=== PATIENT | female | born 1965 | race African-American/Black ===

== ENCOUNTER 2020-06-23 08:49 | Outpatient (CLI) | payer MEDICARE, SELFPAY ==
--- NOTE | ~2020-06-23 | XR_ITS ---
EXAMINATION: XR foot LT 2V DATE: 06/23/2020 11:46 INDICATION: Multiple joint pain. TECHNIQUE: 1. Dorsoplantar and lateral views of the left foot were obtained. COMPARISON: None. FINDINGS: Mild hallux valgus and developing bunion formation with mild hypertrophic change at the medial head o f the first metatarsal. No fracture. Mild osteoarthritis at the first metatarsophalangeal and several interphalangeal joints. Small Achilles and plantar calcaneal spurs with additional small enthesophyt e along the medial malleolus.. Small heterotopic ossicle versus phlebolith alongside the lateral mall eolus. IMPRESSION: 1. Mild degenerative skeletal changes in the left foot as detailed above. Reviewed, dictated and finalized at location B.
--- NOTE | ~2020-06-23 | XR_ITS ---
EXAMINATION: XR knee LT 2V DATE: 06/23/2020 11:46 INDICATION: Multiple joint pain. TECHNIQUE: 2 views of left knee were obtained. COMPARISON: Left knee radiographs 06/08/2016 FINDINGS: Bone alignment is normal. No fracture. There is moderate osteoarthritis of medial compartme nt and mild osteoarthritis of lateral and patellofemoral compartments. No knee joint effusion. IMPRESSION: 1. Moderate left knee osteoarthritis. Reviewed, dictated and finalized at location A.
--- NOTE | ~2020-06-23 | XR_ITS ---
EXAMINATION: XR shoulder RT min 2V DATE: 06/23/2020 11:46 INDICATION: Multiple joint pain. TECHNIQUE: 2 views of right shoulder were obtained. COMPARISON: Right shoulder radiographs 06/16/2016 FINDINGS: Bone alignment is normal. No fracture. There is mild osteoarthritis of glenohumeral joint a nd acromioclavicular joint. IMPRESSION: 1. Polyarticular osteoarthritis. Reviewed, dictated and finalized at location A.
--- NOTE | ~2020-06-23 | XR_ITS ---
XR hip BI wo pelvis DATE: 06/23/2020 11:54 INDICATION: Pelvis and hip pain TECHNIQUE: AP and lateral views of each hip COMPARISON: 02/17/2017 pelvis with bilateral FINDINGS: No fracture or dislocation, avascular necrosis or bone destruction of either hip. Hip joint spaces are symmetric and relatively preserved. The pubic symphysis and sacral iliac joints appear un remarkable. IMPRESSION: No significant abnormality Reviewed, dictated and finalized at location A. IMPRESSION: No significant abnormality
--- NOTE | ~2020-06-23 | XR_ITS ---
EXAMINATION: XR wrist RT 2V, XR hand RT 2V DATE: 06/23/2020 11:46 INDICATION: Multiple joint pain. TECHNIQUE: 1. Posteroanterior and lateral views of the right wrist were obtained. 2. Dorsal palmar and lateral views of the right hand were obtained. COMPARISON: None. FINDINGS: Alignment of the right hand and wrist are normal. No fracture. Mild osteoarthritis at the first carpa l metacarpal, first interphalangeal and second-fifth distal interphalangeal joints and minimal osteoa rthritis at the distal radioulnar and multiple additional metacarpophalangeal and interphalangeal priscilla nts. IMPRESSION: 1. Mild polyarticular osteoarthritis. Reviewed, dictated and finalized at location B.
--- NOTE | ~2020-06-23 | XR_ITS ---
CORRECTED REPORT Order #[id number] and XR foot RT 2V removed from report. 06/23/2020 sef EXAMINATION: XR hand RT 2V DATE: 06/23/2020 11:46 INDICATION: Multiple joint pain. TECHNIQUE: 1. Posteroanterior and lateral views of the right wrist were obtained. 2. Dorsal palmar and lateral views of the right hand were obtained. COMPARISON: None. FINDINGS: Alignment of the right hand and wrist are normal. No fracture. Mild osteoarthritis at the first carpal metacarpal, first interphalangeal and second- fifth distal interphalangeal joints and minimal osteoarthritis at the distal radioulnar and multiple additional metacarpophalangeal and interphalangeal joints. IMPRESSION: 1. Mild polyarticular osteoarthritis. Reviewed, dictated and finalized at location B. MTDD
--- NOTE | ~2020-06-23 | XR_ITS ---
XR foot RT 2V DATE: 06/26/2020 08:14 INDICATION: Multiple foot joint pain TECHNIQUE: AP and lateral views COMPARISON: None FINDINGS: There is plantar and posterior calcaneal enthesopathy. No fracture or dislocation, periosteal reaction or bone destruction. Spaces are preserved. No erosive change. IMPRESSION: Plantar and posterior calcaneal enthesopathy Reviewed, dictated and finalized at location A.
--- NOTE | ~2020-06-23 | XR_ITS ---
EXAMINATION: XR ankle RT 2V DATE: 06/23/2020 11:46 INDICATION: Multiple joint pain. TECHNIQUE: 2 views of right ankle were obtained. COMPARISON: None. FINDINGS: Bone alignment is normal. No fracture. There is mild osteoarthritis of the ankle joint. The re are enthesophytes at the posterior and plantar aspects of calcaneal tuberosity. IMPRESSION: 1. Mild ankle joint osteoarthritis. Reviewed, dictated and finalized at location A.
--- NOTE | ~2020-06-23 | XR_ITS ---
EXAMINATION: XR elbow LT 2V DATE: 06/23/2020 11:46 INDICATION: Multiple joint pain. TECHNIQUE: 2 views of left elbow were obtained. COMPARISON: None. FINDINGS: Bone alignment is normal. No fracture. Joint spaces are well maintained. There is no elbow joint effusion. IMPRESSION: 1. Normal left elbow. Reviewed, dictated and finalized at location A. IMPRESSION: 1. Normal left elbow.
--- NOTE | ~2020-06-23 | XR_ITS ---
EXAMINATION: XR shoulder LT min 2V DATE: 06/23/2020 11:46 INDICATION: Multiple joint pain. TECHNIQUE: 2 views of left shoulder were obtained. COMPARISON: Left shoulder radiographs 06/08/2016 FINDINGS: Bone alignment is normal. No fracture. There is mild osteoarthritis of glenohumeral joint a nd moderate osteoarthritis of acromioclavicular joint. IMPRESSION: 1. Polyarticular osteoarthritis. Reviewed, dictated and finalized at location A.
--- NOTE | ~2020-06-23 | XR_ITS ---
EXAMINATION: XR ankle LT 2V DATE: 06/23/2020 11:46 INDICATION: Multiple joint pain. TECHNIQUE: 2 views of left ankle were obtained. COMPARISON: None. FINDINGS: Bone alignment is normal. No fracture. Joint spaces are normal. There are enthesophytes at the posterior and plantar aspects of calcaneal tuberosity. IMPRESSION: 1. No arthritis. Reviewed, dictated and finalized at location A. IMPRESSION: 1. No arthritis.
--- NOTE | ~2020-06-23 | XR_ITS ---
EXAMINATION: XR elbow RT 2V DATE: 06/23/2020 11:46 INDICATION: Multiple joint pain. TECHNIQUE: 2 views of right elbow were obtained. COMPARISON: None. FINDINGS: Bone alignment is normal. No fracture. Joint spaces are well maintained. There is no elbow joint effusion. IMPRESSION: 1. Normal right elbow. Reviewed, dictated and finalized at location A. IMPRESSION: 1. Normal right elbow.
--- NOTE | ~2020-06-23 | XR_ITS ---
EXAMINATION: XR knee RT 2V DATE: 06/23/2020 11:46 INDICATION: Multiple joint pain. TECHNIQUE: 2 views of right knee were obtained. COMPARISON: Right knee radiographs 06/08/2016 FINDINGS: Bone alignment is normal. No fracture. There is mild tricompartmental osteoarthritis. No kn ee joint effusion. IMPRESSION: 1. Mild right knee osteoarthritis. Reviewed, dictated and finalized at location A.
--- NOTE | ~2020-06-23 | XR_ITS ---
EXAMINATION: XR hand LT 2V DATE: 06/23/2020 11:46 INDICATION: Multiple joint pain. TECHNIQUE: 3 views of left hand were obtained. COMPARISON: None. FINDINGS: Bone alignment is normal. No fracture. There is mild osteoarthritis of first carpometacarpa l joint, first-fourth metacarpophalangeal joints, first interphalangeal joint, and second-fifth dista l interphalangeal joints. IMPRESSION: 1. Mild polyarticular osteoarthritis. Reviewed, dictated and finalized at location A.
--- NOTE | ~2020-06-23 | XR_ITS ---
EXAMINATION: XR wrist LT 2V DATE: 06/23/2020 11:46 INDICATION: Multiple joint pain. TECHNIQUE: 2 views of left wrist were obtained. COMPARISON: None. FINDINGS: Bone alignment is normal. No fracture. There is mild osteoarthritis of first carpometacarpa l joint. IMPRESSION: 1. Mild osteoarthritis of first carpometacarpal joint. Reviewed, dictated and finalized at location A.
[2020-06-23 11:00] LABS: Hematocrit 36.7 % (37.0-47.0); Hemoglobin 11.8 g/dL (12.0-15.0); Mean Corpuscular HGB Conc 32.2 g/dl (32-36); Mean Corpuscular Hemoglobin 28.6 pg (26-34); Mean Corpuscular Volume 88.9 fl (80-100); Mean Platelet Volume 11.7 fl (7.4-10.4); Platelet Count Result 227 k/mm3 (150-375); Red Blood Count 4.13 M/mm3 (4.2-5.4); Red Cell Distribution Width 14.1 % (11.5-14.5); White Blood Count 9.2 K/mm3 (4.5-10.0)
[2020-06-23 11:12] LABS: Hemoglobin A1C 5.4 % (<5.7)
[2020-06-23 11:14] LABS: Rheumatoid Factor < 8.6 IU/ML (<12)
[2020-06-23 11:15] LABS: Alanine Aminotransferase 18 U/L (4-35); Albumin Level 4.1 g/dL (3.5-5.1); Alkaline Phosphatase 74 U/L (38-126); Anion Gap 8 mmol/L (8-16); Aspartate Amino Transferase 17 U/L (14-36); Bilirubin,Total 0.5 mg/dL (0.2-1.3); Blood Urea Nitrogen 16 mg/dL (7-17); Calcium 10.1 mg/dL (8.4-10.2); Carbon Dioxide 29 mmol/L (22-30); Chloride 101 mmol/L (98-107); Creatine Kinase 71 U/L (30-135); Estimated Glomerular Filt Rate > 60; Glucose 95 mg/dL (65-105); Sodium 138 mmol/L (137-145); Uric Acid 6.7 mg/dL (2.5-7.5)
[2020-06-23 11:54] LABS: Free T4 Free Thyroxine 0.94 ng/mL (0.78-2.19); Vitamin D 25 Hydroxy 33.1 ng/mL
[2020-06-23 12:04] LABS: Erythrocyte Sedimentation Rate 99 mm/hr (0-20)
[2020-06-23 12:18] LABS: Folic Acid 5.9 ng/mL (2.76->20)
[2020-06-26 09:38] LABS: Anti Cyclic Citrullinated Pept <16 Units (<20)
[2020-06-28 22:34] LABS: Albumin 3.5 g/dL (3.8-4.8); Alpha 1 Globulin 0.3 g/dL (0.2-0.3); Alpha 2 Globulin 0.9 g/dL (0.5-0.9); Beta 1 Globulin 0.5 g/dL (0.4-0.6); Gamma Globulin 1.5 g/dL (0.8-1.7); Protein, Total 7.3 g/dL (6.1-8.1)
[2020-06-30 20:39] LABS: Creatinine, Random Urine 88 mg/dL (20-275); Total Protein/Creatinine Ratio 68 mg/g creat (21-161)
[2020-07-07 12:27] LABS: Reference Lab Test Name 14-3-3 eta Protein
== END 2020-06-23 08:50 | disposition home or self-care (01) ==
PROVIDERS: Visit Provider Internal Medicine Rheumatology
DX: G62.9 Polyneuropathy, unspecified (principal); R53.83 Other fatigue; M19.90 Unspecified osteoarthritis, unspecified site; M79.10 Myalgia, unspecified site; Z13.1 Encounter for screening for diabetes mellitus; R73.09 Other abnormal glucose; E55.9 Vitamin D deficiency, unspecified; E53.8 Deficiency of other specified B group vitamins; D50.9 Iron deficiency anemia, unspecified
CPT/HCPCS: 36415; 73030; 73070; 73100; 73120; 73521; 73560; 73600; 73620; 80053; 82306; 82550; 82570; 82607; 82728; 82746; 83036; 83520; 83735; 83883; 84155; 84156; 84165; 84166; 84439; 84443; 84550; 85027; 85652; 86038; 86039; 86140; 86200; 86334; 86335; 86430